=== PATIENT | female | born 1965 | race Caucasian/White ===

== ENCOUNTER → 2018-08-04 07:33 | Outpatient (CLI) | payer BC, SELFPAY ==
--- NOTE | 2018-08-04 07:41 | NM_ITS ---
History and Indications: Coronary artery bypass surgery shortness of breath, tobacco use and family history Procedure: Patient received a 0.4 mg of intravenous Lexiscan, resting heart rate was 72 bpm resting blood pressure 164/104, with Lexiscan maximum heart rate achieved was 108 beats per minute, and the blood pressure was 140/86. With Lexiscan patient, shortness of breath and malaise and headache Electrocardiogram: Resting electrocardiogram showed sinus rhythm, with Lexiscan there is less than 1.[address] segment depression noted from the baseline EKG. The EKG portion of the Lexiscan Myoview is nondiagnostic. Cardiac stress and resting SPECT images: Cardiac stress and resting SPECT images were obtained using technetium 99 Myoview 32.4 mCi at stress and 10.8 mCi at rest. Gated SPECT further analysis of segmental wall motion and calculation of the ejection fraction also done. Cardiac stress and resting SPECT images show uniform myocardial activity without segmental perfusion abnormality, computer derived ejection fraction is 48% with no regional wall motion abnormality, right ventricle is normal size and contractility. Conclusion: 1. The EKG portion of the Lexiscan Myoview is nondiagnostic. 2. No scintigraphic evidence of reversible ischemia seen, computer derived ejection fraction is 48% with no regional wall motion abnormality, right ventricle is normal size and contractility. 3. Normal Lexiscan Myoview study.
--- NOTE | 2018-08-04 10:55 | HMH.ITSHM ---
Current Home Medications as stated by this patient Vanna Gaitan or retail account representative. []PROTONIX CARAFATE ZOFRAN
== END ==
PROVIDERS: PCP Family Medicine; Visit Provider Internal Medicine
DX: Z01.810 Encounter for preprocedural cardiovascular examination (principal); R06.00 Dyspnea, unspecified
CPT/HCPCS: 78452; 93017; 93306; A9502; J2785

== ENCOUNTER → 2019-12-29 13:26 | Outpatient (CLI) | payer BC, SELFPAY ==
[2019-12-29 13:47] LABS: Basophils % 0.3 % (0.1-2.0); Eosinophils # 0.2 K/mm3 (0.0-0.4); Eosinophils % 2.3 % (0.1-12.0); Hematocrit 32.9 % (37.0-47.0); Hemoglobin 9.6 g/dL (12.2-16.2); Lymphocytes # 1.9 K/mm3 (0.7-4.5); Lymphocytes % 26.4 % (10-50); Mean Corpuscular HGB Conc 29.3 g/dL (31.8-35.4); Mean Corpuscular Hemoglobin 20.7 pg (27.0-31.2); Mean Corpuscular Volume 70.7 fl (81-99); Mean Platelet Volume 7.8 fl (7.4-10.4); Monocytes # 0.4 K/mm3 (0.1-1.0); Monocytes % 5.9 % (1.7-9.3); Neutrophils # 4.6 K/mm3 (1.8-7.8); Neutrophils % 65.1 % (37.0-80.0); Platelet Count 317 K/mm3 (142-424); Red Blood Count 4.64 M/mm3 (4.20-5.40); Red Cell Distribution Width 16.7 % (11.5-17.5)
[2019-12-29 14:18] LABS: Alanine Aminotransferase 11 U/L (12-78); Albumin/Globulin Ratio 1.7 (1.1-1.8); Alkaline Phosphatase 100 U/L (38-126); Anion Gap 12.1 mEq/L (5-15); Aspartate Amino Transferase 21 U/L (14-36); Bilirubin,Total 0.4 mg/dl (0.2-1.3); Blood Urea Nitrogen 17 mg/dl (7-17); Carbon Dioxide 29 mmol/L (22.0-30.0); Chloride 103 mmol/L (98-107); Chol/HDL Ratio 2.3 (1-3.5); Cholesterol 166 mg/dl (140-200); Estimated Glomerular Filt Rate 88 ml/min (>60); GFR (African American) 106 ML/MIN (>60); Globulin 2.3 g/dL (1.3-3.2); Glucose 80 mg/dl (74-100); HDL Cholesterol 71 mg/dl (40-60); Potassium 5.1 mmoL/L (3.5-5.1); Sodium 139 mmol/L (136-145); Total Protein,Serum 6.3 g/dl (6.3-8.2); Triglycerides 94 mg/dl (30-150); VLDL Cholesterol 19 mg/dL (0-40)
[2019-12-29 14:30] LABS: Direct LDL Cholesterol 82.09 mg/dL (100-129)
[2019-12-29 14:44] LABS: Free T4 (Free Thyroxine) 1.13 ng/dl (0.78-2.19)
[2019-12-29 14:52] LABS: Thyroid Stimulating Hormone 0.97 uIU/mL (0.465-4.68)
== END ==
PROVIDERS: Visit Provider Family Medicine
DX: R53.83 Other fatigue (principal); Z79.899 Other long term (current) drug therapy; E53.8 Deficiency of other specified B group vitamins
CPT/HCPCS: 80053; 80061; 84439; 84443; 85025

== ENCOUNTER → 2020-05-25 16:28 | Outpatient (CLI) | payer BC, SELFPAY ==
[2020-05-25 16:54] LABS: Iron 22 ug/dL (37-170)
[2020-05-25 16:56] LABS: Basophils % 0.6 % (0.1-2.0); Eosinophils # 0.2 K/mm3 (0.0-0.4); Eosinophils % 2.3 % (0.1-12.0); Hematocrit 40.3 % (37.0-47.0); Hemoglobin 12.1 g/dL (12.2-16.2); Lymphocytes # 1.6 K/mm3 (0.7-4.5); Lymphocytes % 22.6 % (10-50); Mean Corpuscular Hemoglobin 23.3 pg (27.0-31.2); Mean Corpuscular Volume 77.6 fl (81-99); Mean Platelet Volume 9.7 fl (7.4-10.4); Monocytes # 0.4 K/mm3 (0.1-1.0); Monocytes % 5.7 % (1.7-9.3); Neutrophils # 4.9 K/mm3 (1.8-7.8); Neutrophils % 68.7 % (37.0-80.0); Platelet Count 311 K/mm3 (142-424); Red Blood Count 5.19 M/mm3 (4.20-5.40); Red Cell Distribution Width 16.2 % (11.5-17.5); White Blood Count 7.1 K/mm3 (4.8-10.8)
== END ==
PROVIDERS: Visit Provider Family Medicine
DX: D50.8 Other iron deficiency anemias (principal); E66.01 Morbid (severe) obesity due to excess calories; G89.4 Chronic pain syndrome
CPT/HCPCS: 83540; 85025

== ENCOUNTER 2024-04-06 13:59 | Emergency (ER) | payer BC, SELFPAY ==
--- NOTE | 2024-04-06 13:59 | ECG_ITS ---
APPROVED REPORT Exam: Resting ECG HR:75 bpm ECG Measurements Heart Rate 75 AXES QRSd 118 QRS 50 QT 379 T 92 QTc 407 Conclusion SUPRAVENTRICULAR RHYTHM, appears to be sinus however artifact complicates this interpretation INCOMPLETE RIGHT BUNDLE BRANCH BLOCK [90+ ms QRS DURATION, TERMINAL R IN V1/V2, 40+ ms S IN I/aVL/V4/V5/V6] ABNORMAL RHYTHM ECG No STEMI Electronically signed by : ZAK VIVAS, 04/07/2024 07:14:24
[2024-04-06 14:00] VITALS: BP 131/90; PULSE 79; RESP 16; TEMP 36.7; O2SAT 97; BMI 33.5
--- NOTE | 2024-04-06 14:02 | CT_ITS ---
PROCEDURE INFORMATION: Exam: CTA Chest With Contrast Exam date and time: 04/06/2024 2:36 PM Age: 58 years old Clinical indication: Pain; On breathing; Additional info: Dyspnea, RT sided chest pain TECHNIQUE: Imaging protocol: Computed tomographic angiography of the chest with contrast. Exam focused on the arteries. 3D rendering (Not supervised by radiologist): MIP and/or 3D reconstructed images were created by the technologist. Radiation optimization: All CT scans at this facility use at least one of these dose optimization techniques: automated exposure control; mA and/or kV adjustment per patient size (includes targeted exams where dose is matched to clinical indication); or iterative reconstruction. Contrast material: ISOVUE 370; Contrast volume: 70 ml; Contrast route: INTRAVENOUS (IV); COMPARISON: No relevant prior studies available. FINDINGS: Pulmonary arteries: No PE. No evidence of cardiac strain. Aorta: Unremarkable. No aortic aneurysm. No aortic dissection. Lungs: Apical predominant mild-moderate paraseptal and centrilobular emphysema. Background mild diffuse ground-glass opacification of the lungs, with superimposed mild scattered interlobular septal thickening. Scattered subsegmental atelectasis bilaterally, most prominently anterior right lung (image 32 series 1001). Pleural spaces: Unremarkable. No pneumothorax. No pleural effusion. Heart: Cardiomegaly. No pericardial fluid. No significant coronary vessel atherosclerosis. Prosthetic mitral valve is noted. Lymph nodes: Unremarkable. No enlarged lymph nodes. Liver: Partially seen hepatomegaly. Pancreas: Mild fatty atrophy of the pancreas. Kidneys: Nonobstructive bilateral nephrolithiasis. Stomach: Postsurgical change of gastric bypass. Status post cholecystectomy. Bones/joints: Mild levocurvature of the thoracic spine. Prior median sternotomy. Soft tissues: Mild anasarca. Nonspecific string of metallic clips in the right upper ventral abdominal wall. IMPRESSION: 1. No PE. No evidence of cardiac strain. 2. Mild pulmonary edema/CHF. 3. Superimposed infection/inflammation not excluded. 4. Partially seen hepatomegaly. According to clinical discretion, dedicated CT abdomen and pelvis can be considered for complete evaluation. COMMENTS: The presence of pulmonary emphysema on CT is an independent risk factor for lung cancer. In the absence of a history or active diagnosis of lung cancer, it is recommended that this patient with emphysema be evaluated for enrollment in a low dose CT lung cancer screening program.
--- NOTE | 2024-04-06 14:02 | [facility].EDCP ---
Discharge Plan Disposition Patient Disposition: Home, Self-Care Condition: Good Prescriptions Prescriptions: New furosemide [Lasix] 40 mg tablet 40 mg PO DAILY Qty: 30 0RF No Action cyanocobalamin (vitamin B-12) 1,000 mcg/mL solution 100 mcg SQ QMONTH nitroglycerin 0.4 mg tablet, sublingual 0.4 mg SUBLINGUAL Q5-15M PRN (Reason: chest pain) Qty: 10 3RF pantoprazole 40 mg tablet,delayed release (DR/EC) 40 mg PO DAILY Qty: 90 3RF albuterol sulfate 90 mcg/actuation aerosol powdr breath activated 2 inh INHALATION Q4-6H PRN (Reason: shortness of breath) Qty: 1 10RF sucralfate [Carafate] 1 gram tablet 1 g PO DAILY doxepin 10 mg capsule 10 mg PO HS PRN (Reason: sleep) Qty: 90 3RF oxycodone-acetaminophen [Percocet] 5-325 mg tablet 1 tab PO TID PRN (Reason: pain) Qty: 90 0RF ferrous sulfate 325 mg (65 mg iron) tablet 325 mg PO DAILY Qty: 30 5RF alprazolam [Xanax] 2 mg tablet 1 mg PO QHS Qty: 15 1RF Referrals Follow up/Referrals: Provider,Referral, MD [Primary Care Provider] - See instructions Activity Restrictions/Add. Instructions Additional Instructions/Restrictions: I have sent a prescription of Lasix into your pharmacy. Please follow-up within 48 hours with your laminating machine offbearer for further evaluation and care of heart failure including echocardiogram. Follow-up with your PCP for recheck of your INR also within 48 hours. Return to ER for any worsening signs or symptoms as needed Clinical Impressions Clinical Impression: Acute chest wall pain, Subtherapeutic international normalized ratio (INR) Chronic CHF (congestive heart failure) Qualifiers: Heart failure type: unspecified Qualified Code(s): I50.9 - Heart failure, unspecified Instructions Patient Instructions: DI for Heart Failure Print Language Print Language: Persian Discharge ED Provider: Reggie Bonner HPI <KAMILAH Longoria - Last Filed: 04/06/24 15:40> General Chief Complaint: Chest Pain Stated Complaint: chest pain/fall Time Seen by Provider: 04/06/24 14:01 History of Present Illness HPI narrative: Patient presents for evaluation of right sided l chest wall pain. Patient has had chest pain for 4 days. She states that she fell 4 days ago injuring her right knee and her chest pain began shortly after. Patient is on Coumadin for mechanical heart valve, she also has a significant past medical history of Farrah-en-Y gastric bypass, iron deficiency anemia, morbid obesity, COPD on nighttime oxygen daily and occasional daytime oxygen when needed, history of CVA with no residual deficits, GERD and chronic pain. She reports chest pain when she takes a deep breath but is not having to usie her daytime oxygen. She denies fever chills hemoptysis hematochezia melena hematemesis hematuria nausea vomiting or diarrhea Related Data Home Medications ?Medication ?Instructions ?Recorded ?Confirmed sucralfate 1 gram tablet (Carafate) 1 g PO DAILY 07/28/18 05/25/20 cyanocobalamin (vitamin B-12) 100 mcg SQ QMONTH 12/29/19 05/25/20 1,000 mcg/mL injection solution Previous Rx's ?Medication ?Instructions ?Recorded nitroglycerin 0.4 mg sublingual 0.4 mg sublingual Q5-15M PRN chest 12/29/19 tablet pain #10 tabs pantoprazole 40 mg tablet,delayed 40 mg PO DAILY #90 tabs 02/23/20 release albuterol sulfate 90 mcg/actuation 2 inh inhalation Q4-6H PRN 03/27/20 breath activated powder inhaler shortness of breath #1 ea doxepin 10 mg capsule 10 mg PO HS PRN sleep #90 caps 04/26/20 alprazolam 2 mg tablet (Xanax) 1 mg (1/2 x 2 mg) PO QHS #15 tabs 05/25/20 ferrous sulfate 325 mg (65 mg 325 mg PO DAILY #30 tabs 05/25/20 iron) tablet oxycodone-acetaminophen 5 mg-325 1 tab PO TID PRN pain #90 tabs 05/25/20 mg tablet (Percocet) furosemide 40 mg tablet (Lasix) 40 mg PO DAILY #30 tabs 04/06/24 Allergies Allergy/AdvReac Type Severity Reaction Status Date / Time bromfenac [From Duract] Allergy Mild Verified 05/25/20 09:05 cephalexin [From Keflex] Allergy Mild Verified 05/25/20 09:05 PFS <KAMILAH Longoria - Last Filed: 04/06/24 15:40> [facility] Disclaimer: The information contained in this section may have been updated after the patient was seen, as this information can be updated by other users. Social History Smoking Status: Current every day smoker alcohol intake: former substance use type: denies use and former substance user current occupational status: employed Travel in the last 8 weeks: None household members: family and children housing: house Other Medical History Have you received the Pneumonia Vaccine: Yes <KAMLIAH Longoria - Last Filed: 04/06/24 15:40> ROS Obtained: Yes Systems reviewed as appropriate & no additional complaints except as documented Physical Exam <KAMILAH Longoria - Last Filed: 04/06/24 15:40> General General appearance: alert and in no apparent distress Respiratory Respiratory exam: Present normal lung sounds bilaterally Cardiovascular Cardiovascular exam: Present regular rate Neurological Exam Neurological exam: Present alert, oriented X3 and CN II-XII intact HEART Score <KAMILAH Longoria - Last Filed: 04/06/24 15:40> HEART Score HEART Score assessment performed?: Yes History (anamnesis): Moderately suspicious ECG: Non-specific disturbance Age: 45-65 years Risk factors: Atherosclerosis history Troponin: </= normal limit HEART Score: 5 <Reggie Bonner MD - Last Filed: 04/06/24 20:38> HEART Score HEART Score: 5 Critical Care <KAMILAH Longoria - Last Filed: 04/06/24 15:40> Critical Care Time Critical Care Time: No Medical Decision Making <KAMILAH Longoria - Last Filed: 04/06/24 15:40> Medical Records Medical records reviewed: Yes I reviewed the patient's medical records. Rafi Inquiry Pt receiving controlled substance: No Vital Signs Vital Signs: 04/06/24 14:00 04/06/24 15:00 04/06/24 15:53 Temperature 98.0 F 98.2 F Temperature Source Oral Pulse Rate 67 65 Pulse Rate [Radial] 79 Respiratory Rate 16 20 Blood Pressure 121/68 138/93 H Blood Pressure [Right Arm] 131/90 Blood Pressure Mean [Right Arm] 103 Blood Pressure Source [Right Arm] Automatic Cuff Blood Pressure Position [Right Arm] Sitting 02 Sat by Pulse Oximetry 97 96 Oxygen Delivery Method Room Air Room Air Lab Data Lab results reviewed: Yes I reviewed the patient's lab results. Labs: Lab Results 04/06/24 14:00: WBC 13.7 H, RBC 4.63, Hgb 12.2, Hct 38.9, MCV 84.1, MCH 26.4 L, MCHC 31.4 L, RDW 16.5, Plt Count 268, MPV 7.7, Neut % (Auto) 80.4 H, Lymph % (Auto) 11.1, [place] % (Auto) 6.8, Eos % (Auto) 1.3, Baso % (Auto) 0.4, Neut # (Auto) 11.0 H, Lymph # (Auto) 1.5, [place] # (Auto) 0.9, Eos # (Auto) 0.2, Baso # (Auto) 0.1, PT 12.5, INR 1.13 H, Sodium 140, Potassium 4.0, Chloride 104, Carbon Dioxide 33 H, Anion Gap 7.0, BUN 32 H, Creatinine 0.80, Estimated Creat Clear 105, Estimated GFR 74, Est GFR ( Amer) 89, Glucose 101 H, Calcium 8.2 L, Magnesium 2.0, Total Bilirubin 0.6, AST 23, ALT 22, Alkaline Phosphatase 76, Troponin I < 0.01, NT-Pro-B Natriuret Pep 918 H, Total Protein 6.4, Albumin 3.8, Globulin 2.6, Albumin/Globulin Ratio 1.5, Procalcitonin 0.039, HIV 1&2 Antibody Rapid Nonreactive 04/06/24 14:03: VBG pH 7.39, VBG pCO2 54.0 H, VBG pO2 43.5 H, VBG HCO3 31.9 H, VBG Total CO2 33.5 H, VBG O2 Saturation 82.7 H, VBG Base Excess 6.9 H, VBG Lactic Acid 2.2 H, SARS-CoV-2 (PCR) Not detected, Influenza A Untype (PCR) Not detected, Influenza Type B (PCR) Not detected 04/06/24 14:00 04/06/24 14:00 Response Orders (Tests/Meds): ED MEDICATIONS Discontinued Medications Generic Name Dose Route Start Last Admin Trade Name Freq PRN Reason Stop Dose Admin Acetaminophen 1,000 mg 04/06/24 14:02 04/06/24 14:45 Acetaminophen 500mg Tab PO 04/06/24 14:03 1,000 mg ONCE ONE Administration Furosemide 80 mg 04/06/24 15:30 04/06/24 15:22 Furosemide 100mg/10ml Vial IV 04/06/24 15:31 80 mg ONCE ONE Administration Iopamidol 70 ml 04/06/24 14:34 04/06/24 14:35 Iopamidol-370 (76%);100ml Bottle IV 04/06/24 14:35 70 ml ONCE ONE Administration Sodium Chloride 50 ml 04/06/24 14:34 04/06/24 14:35 0.9 % Sodium Chloride 50 Ml Vial IV 04/06/24 14:35 50 ml ONCE ONE Administration Sodium Chloride 10 ml 04/06/24 14:34 04/06/24 14:35 Sodium Chloride 0.9% 10ml Syr (Rad Only) IV 04/06/24 14:35 10 ml ONCE ONE Administration ORDERS Category Date Time Status CT angio chest PE protocol Stat Cat Scan 04/06/24 14:02 Completed Knee XR right 4 views [XR knee RT 4V] Stat Exams 04/06/24 14:38 Completed BNP [NT Pro Brain Natriuretic Pep.] Stat Lab 04/06/24 14:00 Completed CBC w/Auto Diff [Complete Blood Count Auto Diff] Stat Lab 04/06/24 14:00 Completed CMP [Comprehensive Metabolic Panel] Stat Lab 04/06/24 14:00 Completed HIV (1&2) Antibody Rapid Stat Lab 04/06/24 14:00 Completed Hep C Ab with Reflex to RNA Stat Lab 04/06/24 14:00 Received INR [Prothrombin Time INR] Stat Lab 04/06/24 14:00 Completed Magnesium Stat Lab 04/06/24 14:00 Completed Procalcitonin Stat Lab 04/06/24 14:00 Completed Rapid PCR Covid and Flu A/B Stat Lab 04/06/24 14:03 Completed Trop I [Troponin I] Stat Lab 04/06/24 14:00 Completed VBG [Venous Blood Gas] Stat RT 04/06/24 14:03 Completed CA venous doppler LE RT Stat Y 04/06/24 15:01 Completed MDM Narrative Medical Decision Narrative: In summary patient is a 58-year-old female who presents to the emergency department for evaluation of chest pain. Patient is hemodynamically stable satting at 97% on room air upon arrival, afebrile. Physical exam is remarkable for respiratory rate of about 16 but increase work of breathing, nonreproducible chest pain on palpation, diminished breath sounds at the bases with coarse rhonchi, nontender abdominal exam, no tenderness of the dorsal spine C-spine or head, significant ecchymosis of the right lower extremity around the knee with a small abrasion over the patella and tenderness to palpation in the same area but no palpable bony deformity. Ecchymosis extends down to the toes. Differential diagnosis includes PE pneumonia COPD ACS CHF coagulopathy occult fracture etc. Initial workup will be conducted with hematologic labs CT scan of the chest PE protocol and plain film x-rays of the right lower extremity. Initial interventions include acetaminophen DuoNeb Decadron. Initial workup reviewed by me shows that she has a white count of 13.7 with a neutrophil count of 11.1 however patient has been on steroids and antibiotics last week for reported infection, her INR is subtherapeutic at 1.13, VBG shows a preserved pH with a pCO2 of 54, NT proBNP is elevated at 884 and patient reports compliance with her Lasix. Ultrasound of the right lower extremity shows no evidence of deep or superficial thrombus. Upon repeat evaluation patient reports improvement in her symptoms after initial intervention. Given this had interactive discussion with the patient about her findings in her case and via patient directed decision making and discharge patient is comfortable going home with follow-up with her laminating machine offbearer tomorrow. <Catarina Pitts, DO - Last Filed: 04/06/24 15:24> Vital Signs Vital Signs: 04/06/24 14:00 04/06/24 15:00 04/06/24 15:53 Temperature 98.0 F 98.2 F Temperature Source Oral Pulse Rate 67 65 Pulse Rate [Radial] 79 Respiratory Rate 16 20 Blood Pressure 121/68 138/93 H Blood Pressure [Right Arm] 131/90 Blood Pressure Mean [Right Arm] 103 Blood Pressure Source [Right Arm] Automatic Cuff Blood Pressure Position [Right Arm] Sitting 02 Sat by Pulse Oximetry 97 96 Oxygen Delivery Method Room Air Room Air Lab Data Labs: Lab Results 04/06/24 14:00: WBC 13.7 H, RBC 4.63, Hgb 12.2, Hct 38.9, MCV 84.1, MCH 26.4 L, MCHC 31.4 L, RDW 16.5, Plt Count 268, MPV 7.7, Neut % (Auto) 80.4 H, Lymph % (Auto) 11.1, [place] % (Auto) 6.8, Eos % (Auto) 1.3, Baso % (Auto) 0.4, Neut # (Auto) 11.0 H, Lymph # (Auto) 1.5, [place] # (Auto) 0.9, Eos # (Auto) 0.2, Baso # (Auto) 0.1, PT 12.5, INR 1.13 H, Sodium 140, Potassium 4.0, Chloride 104, Carbon Dioxide 33 H, Anion Gap 7.0, BUN 32 H, Creatinine 0.80, Estimated Creat Clear 105, Estimated GFR 74, Est GFR ( Amer) 89, Glucose 101 H, Calcium 8.2 L, Magnesium 2.0, Total Bilirubin 0.6, AST 23, ALT 22, Alkaline Phosphatase 76, Troponin I < 0.01, NT-Pro-B Natriuret Pep 918 H, Total Protein 6.4, Albumin 3.8, Globulin 2.6, Albumin/Globulin Ratio 1.5, Procalcitonin 0.039, HIV 1&2 Antibody Rapid Nonreactive 04/06/24 14:03: VBG pH 7.39, VBG pCO2 54.0 H, VBG pO2 43.5 H, VBG HCO3 31.9 H, VBG Total CO2 33.5 H, VBG O2 Saturation 82.7 H, VBG Base Excess 6.9 H, VBG Lactic Acid 2.2 H, SARS-CoV-2 (PCR) Not detected, Influenza A Untype (PCR) Not detected, Influenza Type B (PCR) Not detected Response Orders (Tests/Meds): ED MEDICATIONS Discontinued Medications Generic Name Dose Route Start Last Admin Trade Name Freq PRN Reason Stop Dose Admin Acetaminophen 1,000 mg 04/06/24 14:02 04/06/24 14:45 Acetaminophen 500mg Tab PO 04/06/24 14:03 1,000 mg ONCE ONE Administration Furosemide 80 mg 04/06/24 15:30 04/06/24 15:22 Furosemide 100mg/10ml Vial IV 04/06/24 15:31 80 mg ONCE ONE Administration Iopamidol 70 ml 04/06/24 14:34 04/06/24 14:35 Iopamidol-370 (76%);100ml Bottle IV 04/06/24 14:35 70 ml ONCE ONE Administration Sodium Chloride 50 ml 04/06/24 14:34 04/06/24 14:35 0.9 % Sodium Chloride 50 Ml Vial IV 04/06/24 14:35 50 ml ONCE ONE Administration Sodium Chloride 10 ml 04/06/24 14:34 04/06/24 14:35 Sodium Chloride 0.9% 10ml Syr (Rad Only) IV 04/06/24 14:35 10 ml ONCE ONE Administration ORDERS Category Date Time Status CT angio chest PE protocol Stat Cat Scan 04/06/24 14:02 Completed Knee XR right 4 views [XR knee RT 4V] Stat Exams 04/06/24 14:38 Completed BNP [NT Pro Brain Natriuretic Pep.] Stat Lab 04/06/24 14:00 Completed CBC w/Auto Diff [Complete Blood Count Auto Diff] Stat Lab 04/06/24 14:00 Completed CMP [Comprehensive Metabolic Panel] Stat Lab 04/06/24 14:00 Completed HIV (1&2) Antibody Rapid Stat Lab 04/06/24 14:00 Completed Hep C Ab with Reflex to RNA Stat Lab 04/06/24 14:00 Received INR [Prothrombin Time INR] Stat Lab 04/06/24 14:00 Completed Magnesium Stat Lab 04/06/24 14:00 Completed Procalcitonin Stat Lab 04/06/24 14:00 Completed Rapid PCR Covid and Flu A/B Stat Lab 04/06/24 14:03 Completed Trop I [Troponin I] Stat Lab 04/06/24 14:00 Completed VBG [Venous Blood Gas] Stat RT 04/06/24 14:03 Completed CA venous doppler LE RT Stat Y 04/06/24 15:01 Completed ECG Data Tracing #1: Attestation: I reviewed this ECG and interpreted as documented below: ECG Narrative: Normal sinus rhythm with a ventricular rate of 77 bpm. Incomplete right bundle branch block. No acute ST changes concerning for ischemia. Summation artifact degrades study ECG initial impression date: 04/06/24 ECG initial impression time: 14:00 Tracing #2: Attestation: I reviewed this ECG and interpreted as documented below: ECG Narrative: Normal sinus rhythm with a ventricular to 75 bpm. Incomplete right bundle branch block. No acute ST changes concerning for ischemia. Improved with less motion artifact from prior study. ECG initial impression date: 04/06/24 ECG initial impression time: 14:00 <Reggie Bonner MD - Last Filed: 04/06/24 20:38> Vital Signs Vital Signs: 04/06/24 14:00 04/06/24 15:00 04/06/24 15:53 Temperature 98.0 F 98.2 F Temperature Source Oral Pulse Rate 67 65 Pulse Rate [Radial] 79 Respiratory Rate 16 20 Blood Pressure 121/68 138/93 H Blood Pressure [Right Arm] 131/90 Blood Pressure Mean [Right Arm] 103 Blood Pressure Source [Right Arm] Automatic Cuff Blood Pressure Position [Right Arm] Sitting 02 Sat by Pulse Oximetry 97 96 Oxygen Delivery Method Room Air Room Air Lab Data Labs: Lab Results 04/06/24 14:00: WBC 13.7 H, RBC 4.63, Hgb 12.2, Hct 38.9, MCV 84.1, MCH 26.4 L, MCHC 31.4 L, RDW 16.5, Plt Count 268, MPV 7.7, Neut % (Auto) 80.4 H, Lymph % (Auto) 11.1, [place] % (Auto) 6.8, Eos % (Auto) 1.3, Baso % (Auto) 0.4, Neut # (Auto) 11.0 H, Lymph # (Auto) 1.5, [place] # (Auto) 0.9, Eos # (Auto) 0.2, Baso # (Auto) 0.1, PT 12.5, INR 1.13 H, Sodium 140, Potassium 4.0, Chloride 104, Carbon Dioxide 33 H, Anion Gap 7.0, BUN 32 H, Creatinine 0.80, Estimated Creat Clear 105, Estimated GFR 74, Est GFR ( Amer) 89, Glucose 101 H, Calcium 8.2 L, Magnesium 2.0, Total Bilirubin 0.6, AST 23, ALT 22, Alkaline Phosphatase 76, Troponin I < 0.01, NT-Pro-B Natriuret Pep 918 H, Total Protein 6.4, Albumin 3.8, Globulin 2.6, Albumin/Globulin Ratio 1.5, Procalcitonin 0.039, HIV 1&2 Antibody Rapid Nonreactive 04/06/24 14:03: VBG pH 7.39, VBG pCO2 54.0 H, VBG pO2 43.5 H, VBG HCO3 31.9 H, VBG Total CO2 33.5 H, VBG O2 Saturation 82.7 H, VBG Base Excess 6.9 H, VBG Lactic Acid 2.2 H, SARS-CoV-2 (PCR) Not detected, Influenza A Untype (PCR) Not detected, Influenza Type B (PCR) Not detected Response Orders (Tests/Meds): ED MEDICATIONS Discontinued Medications Generic Name Dose Route Start Last Admin Trade Name Jacinda PRN Reason Stop Dose Admin Acetaminophen 1,000 mg 04/06/24 14:02 04/06/24 14:45 Acetaminophen 500mg Tab PO 04/06/24 14:03 1,000 mg ONCE ONE Administration Furosemide 80 mg 04/06/24 15:30 04/06/24 15:22 Furosemide 100mg/10ml Vial IV 04/06/24 15:31 80 mg ONCE ONE Administration Iopamidol 70 ml 04/06/24 14:34 04/06/24 14:35 Iopamidol-370 (76%);100ml Bottle IV 04/06/24 14:35 70 ml ONCE ONE Administration Sodium Chloride 50 ml 04/06/24 14:34 04/06/24 14:35 0.9 % Sodium Chloride 50 Ml Vial IV 04/06/24 14:35 50 ml ONCE ONE Administration Sodium Chloride 10 ml 04/06/24 14:34 04/06/24 14:35 Sodium Chloride 0.9% 10ml Syr (Rad Only) IV 04/06/24 14:35 10 ml ONCE ONE Administration ORDERS Category Date Time Status CT angio chest PE protocol Stat Cat Scan 04/06/24 14:02 Completed Knee XR right 4 views [XR knee RT 4V] Stat Exams 04/06/24 14:38 Completed BNP [NT Pro Brain Natriuretic Pep.] Stat Lab 04/06/24 14:00 Completed CBC w/Auto Diff [Complete Blood Count Auto Diff] Stat Lab 04/06/24 14:00 Completed CMP [Comprehensive Metabolic Panel] Stat Lab 04/06/24 14:00 Completed HIV (1&2) Antibody Rapid Stat Lab 04/06/24 14:00 Completed Hep C Ab with Reflex to RNA Stat Lab 04/06/24 14:00 Received INR [Prothrombin Time INR] Stat Lab 04/06/24 14:00 Completed Magnesium Stat Lab 04/06/24 14:00 Completed Procalcitonin Stat Lab 04/06/24 14:00 Completed Rapid PCR Covid and Flu A/B Stat Lab 04/06/24 14:03 Completed Trop I [Troponin I] Stat Lab 04/06/24 14:00 Completed VBG [Venous Blood Gas] Stat RT 04/06/24 14:03 Completed CA venous doppler LE RT Stat Y 04/06/24 15:01 Completed MDM Narrative Medical Decision Narrative: In summary patient is a 58-year-old female who presents to the emergency department for evaluation of chest pain. Patient is hemodynamically stable satting at 97% on room air upon arrival, afebrile. Physical exam is remarkable for respiratory rate of about 16 but increase work of breathing, nonreproducible chest pain on palpation, diminished breath sounds at the bases with coarse rhonchi, nontender abdominal exam, no tenderness of the dorsal spine C-spine or head, significant ecchymosis of the right lower extremity around the knee with a small abrasion over the patella and tenderness to palpation in the same area but no palpable bony deformity. Ecchymosis extends down to the toes. Differential diagnosis includes PE pneumonia COPD ACS CHF coagulopathy occult fracture etc. Initial workup will be conducted with hematologic labs CT scan of the chest PE protocol and plain film x-rays of the right lower extremity. Initial interventions include acetaminophen DuoNeb Decadron. Initial workup reviewed by me shows that she has a white count of 13.7 with a neutrophil count of 11.1 however patient has been on steroids and antibiotics last week for reported infection, her INR is subtherapeutic at 1.13, VBG shows a preserved pH with a pCO2 of 54, NT proBNP is elevated at 884 and patient reports compliance with her Lasix. Ultrasound of the right lower extremity shows no evidence of deep or superficial thrombus. Upon repeat evaluation patient reports improvement in her symptoms after initial intervention. Given this had interactive discussion with the patient about her findings in her case and via patient directed decision making and discharge patient is comfortable going home with follow-up with her laminating machine offbearer tomorrow. I was consulted by the [place], and we discussed the complexity of the problems being addressed. I approved the treatment and management plan for this patient's care in the Emergency Department, thus performing a substantive portion of the medical decision making. Reggie Bonner MD
[2024-04-06 14:13] LABS: Coronavirus 19, PCR Not Detected (NotDetected); Influenza A, PCR Not Detected (NotDetected); Influenza B, PCR Not Detected (NotDetected)
[2024-04-06 14:15] LABS: VBG Base Excess 6.9 mmol/L (-2.4-2.3); VBG HCO3 31.9 mmol/L (23-30); VBG Oxygen Saturation 82.7 % (50-70); VBG PH 7.39 mmol/L (7.31-7.41); VBG PO2 43.5 mmol/L (28-40); VBG Total CO2 33.5 mmol/L (23-27)
[2024-04-06 14:18] LABS: Lactate Venous 2.2 mmol/L (0.4-2.0)
[2024-04-06 14:19] LABS: Albumin Level 3.8 g/dl (3.5-5.0); Chloride 104 mmol/L (98-107); Sodium 140 mmol/L (136-145)
[2024-04-06 14:22] LABS: Alanine Aminotransferase 22 U/L (12-78); Albumin/Globulin Ratio 1.5 (1.1-1.8); Alkaline Phosphatase 76 U/L (38-126); Aspartate Amino Transferase 23 U/L (14-36); Bilirubin,Total 0.6 mg/dl (0.2-1.3); Blood Urea Nitrogen 32 mg/dl (7-17); Calcium 8.2 mg/dl (8.4-10.2); Carbon Dioxide 33 mmol/L (22.0-30.0); Creatinine Clearance Estimated 105 mL/min (50-200); Estimated Glomerular Filt Rate 74 ml/min (>60); GFR (African American) 89 ML/MIN (>60); Globulin 2.6 g/dL (1.3-3.2); Glucose 101 mg/dl (74-100); Total Protein,Serum 6.4 g/dl (6.3-8.2)
[2024-04-06 14:24] LABS: INR 1.13 (0.9-1.1); Prothrombin Time 12.5 seconds (10.1-12.5)
[2024-04-06 14:27] LABS: Basophils # 0.1 K/mm3 (0-0.2); Basophils % 0.4 % (0.1-2.0); Eosinophils # 0.2 K/mm3 (0.0-0.4); Eosinophils % 1.3 % (0.1-12.0); Hematocrit 38.9 % (37.0-47.0); Hemoglobin 12.2 g/dL (12.2-16.2); Lymphocytes # 1.5 K/mm3 (0.7-4.5); Lymphocytes % 11.1 % (10-50); Mean Corpuscular HGB Conc 31.4 g/dL (31.8-35.4); Mean Corpuscular Hemoglobin 26.4 pg (27.0-31.2); Mean Corpuscular Volume 84.1 fl (81-99); Mean Platelet Volume 7.7 fl (7.4-10.4); Monocytes # 0.9 K/mm3 (0.1-1.0); Monocytes % 6.8 % (1.7-9.3); Neutrophils % 80.4 % (37.0-80.0); Platelet Count 268 K/mm3 (142-424); Red Blood Count 4.63 M/mm3 (4.20-5.40); Red Cell Distribution Width 16.5 % (11.5-17.5); White Blood Count 13.7 K/mm3 (4.8-10.8)
--- NOTE | 2024-04-06 14:30 | PC.NURSE ---
patient gone to CT at this time.
[2024-04-06] MEDS: 0.9 % SODIUM CHLORIDE 50 ML VIAL IV (14:35)
[2024-04-06] MEDS: SODIUM CHLORIDE 0.9% 10ML SYR (RAD ONLY) 10 ML IV (14:35)
[2024-04-06] MEDS: IOPAMIDOL-370 (76%);100ML BOTTLE 70 ML IV (14:35)
--- NOTE | 2024-04-06 14:38 | XR_ITS ---
PROCEDURE INFORMATION: Exam: XR Right Knee Exam date and time: 04/06/2024 3:08 PM Age: 58 years old Clinical indication: Injury or trauma; Fall; Blunt trauma; Knee; Right; Additional info: Fall, hematoma TECHNIQUE: Imaging protocol: Radiologic exam of the right knee. Views: 4 or more views. COMPARISON: No relevant prior studies available. FINDINGS: Bones/joints: No acute fracture or malalignment. Right knee arthroplasty with patellar resurfacing in satisfactory alignment without evidence of hardware complication. Soft tissues: Moderate soft tissue swelling around the knee. No radiopaque foreign body or gas. IMPRESSION: 1. No acute fracture or malalignment. 2. Moderate knee soft tissue swelling.
[2024-04-06] MEDS: ACETAMINOPHEN 500MG TAB 1000 MG PO (14:45)
[2024-04-06 14:57] LABS: Procalcitonin 0.039 ng/mL (0.0-2.0)
[2024-04-06 15:00] VITALS: BP 121/68; PULSE 67; O2SAT 96
[2024-04-06] MEDS: FUROSEMIDE 100MG/10ML VIAL 80 MG IV (15:22)
--- NOTE | 2024-04-06 15:28 | PC.NURSE ---
doppler at bedside and its negative
[2024-04-06 15:40] LABS: NT Pro Brain Natriuretic Pep. 918 pg/mL (0-125); Troponin I < 0.01 ng/ml (0.00-0.034)
[2024-04-06 15:53] VITALS: BP 138/93; PULSE 65; RESP 20; TEMP 36.8; O2SAT 93
[2024-04-06 16:33] LABS: HIV (1&2) Antibody Rapid NONREACTIVE (NONREACTIVE)
[2024-04-06 18:18] LABS: Reflex Lactic Add Lactic Reflex
[2024-04-08 22:08] LABS: HCV Ab Reactive (Non Reactive)
== END 2024-04-06 15:55 | disposition home or self-care (01) ==
PROVIDERS: Physician Assistant; Emergency Provider Emergency Medicine
DX: R79.1 Abnormal coagulation profile (principal); I50.9 Heart failure, unspecified; R07.89 Other chest pain; R07.9 Chest pain, unspecified
CPT/HCPCS: 71275; 73564; 80053; 82803; 83735; 83880; 84145; 84484; 85025; 85610; 86803; 87389; 87636; 93005; 93971; 96374; 99285; J1940; Q9967

== ENCOUNTER 2024-06-21 10:52 | Outpatient (POV) | payer OTHER, SELFPAY ==
[2024-06-21 11:09] VITALS: BP 123/95; PULSE 66; RESP 16; O2SAT 96; BMI 34.5
--- NOTE | 2024-06-21 11:51 | A.OFFVIS_ITS ---
HPI Data of Consult Patient: new to practice Consult date: 06/21/24 Requesting Physician: Catarina Batista APRN Primary Care Provider: Referral Provider, MD Consult Narrative Reason for consult: Low back pain, bilateral leg pain History of present illness: Ms. Gaitan is a 58 year old female who presents today as a new patient. She has a referral from Jason Jang. Today she rates her pain an 8 out of 10. Patient states she has chronic pain throughout her low back that does radiate down into both her legs with the right side more affected than the left. She does also have chronic knee related pain. Patient states this has been going on for at least 15 years if not longer. She states the pain is constant and describes it as an aching, throbbing sensation with some numbness and tingling. She states that she cannot do prolonged walking or standing due to the pain and it frequently causes her legs to give out. Patient states it was not that long ago that she had this happen causing her to fall and had significant injury on her knee with abrasions and bruising. Patient states that she cannot lift or do any type of activity such as cooking or cleaning due to the worsening pain. She states she frequently has to stop and take multiple breaks due to the pain. She has tried oral medications along with heat and ice and topicals with minimal relief. Patient states she has had multiple injections in the past including epidurals, lumbar ablations that never seem to work. She states the ablation she will never do again because it caused such significant pain. Patient also states that her epidural at 1 point she had in the past caused her where she could not even walk for about 3 days. Patient is not interested in any injection therapy. Patient does have significant heart history and does have a mechanical valve in place. Patient states that she had physical therapy but it made her pain worse. She does states she tries to stay active but is very limited due to the pain. Patient also states that her insurance recently changed and she is not really sure what is covered and what is not. Patient also has a history of gastric bypass and cannot do any NSAIDs due to this. Patient is prescribed gabapentin and Ambien from an outside provider. Patient does state that she has had back surgery in the past however she is not exactly sure of the timeframe or what procedure they did do. Her Rafi has been reviewed and is appropriate. CC: Catarina Batista APRN [facility] Disclaimer: The information contained in this section may have been updated after the deepakedward nt was seen, as this information can be updated by other users. Medical History (Updated 06/21/24 @ 11:58 by Catarina Batista APRN) Anemia Anxiety COPD (chronic obstructive pulmonary disease) Hypertension Heart disease Chest pain Surgical History (Updated 06/21/24 @ 11:16 by Hilary Nayak, RN) History of total right knee replacement History of open heart surgery History of back surgery Social History Smoking Status: Current every day smoker alcohol intake: former substance use type: denies use and former substance user current occupational status: other Travel in the last 8 weeks: None household members: family and children housing: house Review of Systems Review of Systems Review of systems:: pertinent systems reviewed and negative unless documented below Review of systems (narrative): Review of Systems: General: No recent weight changes, no fever, no sleep disturbances Respiratory: No cough, no shortness of air, no recurring pulmonary infections Cardiovascular/peripheral vascular: No chest pain, no palpitations, no edema, n o shortness of breath Gastrointestinal: No new onset incontinence, normal bowel movements reported Genitourinary: No new onset incontinence Musculoskeletal: Low back pain, bilateral leg pain, knee pain Psychiatric: [Normal mood/affect] Neurological: [Denies weakness in extremities], [denies balance issues] Meds Home Medications and Allergies Home Medications ?Medication ?Instructions ?Recorded ?Confirmed ?Type sucralfate 1 gram tablet (Carafate) 1 g PO DAILY 07/28/18 06/21/24 History cyanocobalamin (vitamin B-12) 100 mcg SQ QMONTH 12/29/19 06/21/24 History 1,000 mcg/mL injection solution nitroglycerin 0.4 mg sublingual 0.4 mg sublingual Q5-15M PRN chest 12/29/19 06/21/24 Rx tablet pain #10 tabs pantoprazole 40 mg tablet,delayed 40 mg PO DAILY #90 tabs 02/23/20 06/21/24 Rx release albuterol sulfate 90 mcg/actuation 2 inh inhalation Q4-6H PRN 03/27/20 06/21/24 Rx breath activated powder inhaler shortness of breath #1 ea doxepin 10 mg capsule 10 mg PO HS PRN sleep #90 caps 04/26/20 06/21/24 Rx alprazolam 2 mg tablet (Xanax) 1 mg (1/2 x 2 mg) PO QHS #15 tabs 05/25/20 06/21/24 Rx ferrous sulfate 325 mg (65 mg 325 mg PO DAILY #30 tabs 05/25/20 06/21/24 Rx iron) tablet oxycodone-acetaminophen 5 mg-325 1 tab PO TID PRN pain #90 tabs 05/25/20 06/21/24 Rx mg tablet (Percocet) furosemide 40 mg tablet (Lasix) 40 mg PO DAILY #30 tabs 04/06/24 06/21/24 Rx New Prescriptions to Start Prescriptions: Allergies Allergy/AdvReac Type Severity Reaction Status Date / Time bromfenac (From Duract) Allergy Mild Verified 05/25/20 09:05 cephalexin (From Keflex) Allergy Mild Verified 05/25/20 09:05 Objective Vital signs: Pulse Resp BP Pulse Ox O2 Del Method 66 16 123/95 H 96 Room Air 06/21/24 11:09 06/21/24 11:09 06/21/24 11:09 06/21/24 11:09 06/21/24 11:09 Narrative: Physical Exam: General: Alert and oriented x3, no acute distress, pleasant and cooperative Lungs: Respirations even and unlabored, symmetrical chest expansion Eyes: PERRL Musculoskeletal: Flexion and extension of lumbar [spine] somewhat guarded secondary to pain, [antalgic gait noted] point tenderness along the lower lumbar spine and SI joints bilaterally Neurological: Speech clear, no gross sensory deficit Additional findings Additional findings: Orthocincy January 05, 2021 MRI lumbar spine without Findings: There is no fracture deformity or acute malalignment. Modic type I degenerative endplate changes L3-L4 as well as to the greater extent L4-L5. Degenerative edema versus stress type I marrow changes extend into the right greater than left L4 pedicles. Conus terminates at L1. Distal cord is normal. Imaged paravertebral soft tissues are normal. L1-L2: Shallow disc bulge with moderate facet disease. Mild central canal stenosis without foraminal narrowing L2-L3: Shallow disc bulge with moderate bilateral facet disease contributes to mild central canal stenosis without significant foraminal stenosis L3-L4: Broad-based disc bulge, severe bilateral facet and ligamentous hype rtrophy resulting in moderate canal stenosis, left and right lateral recess effacement, moderate right and left foraminal narrowing. Similar to prior study. L4-L5: Moderate disc height space loss, broad-based disc osteophyte complex with severe bilateral facet disease, severe canal stenosis, severe right and left foraminal narrowing. Central canal stenosis is progressive from prior study. L5-S1: Bony fusion across the disc space. Endplate hypertrophy and mild facet disease. There is minimal thecal sac effacement, mild bilateral foraminal stenosis Assessment and Plan *Assessment and plan (1) Lumbar disc disease: Status: Acute Category: Medical Code(s): M51.9 - Unspecified thoracic, thoracolumbar and lumbosacral intervertebral disc disorder (2) Chronic back pain: Status: Acute Category: Medical Code(s): M54.9 - Dorsalgia, unspecified; G89.29 - Other chronic pain (3) Degenerative disc disease, lumbar: Status: Acute Category: Medical Code(s): M51.369 - Other intervertebral disc degeneration, lumbar region without mention of lumbar back pain or lower extremity pain (4) Lumbar radiculopathy: Status: Acute Category: Medical Code(s): M54.16 - Radiculopathy, lumbar region (5) Spinal stenosis of lumbar region with neurogenic claudication: Status: Acute Category: Medical Code(s): M48.062 - Spinal stenosis, lumbar region with neurogenic claudication Plan Patient is experiencing significant pain throughout her low back with very limited range of motion. I did discuss with the patient due to her extensive history of surgical intervention and chronic pain that she may be a potential candidate of a intrathecal pain pump trial as well as possible minimally invasive lumbar decompression. Patient was reviewed over the risk and benefits of both of these devices and she would like time to research as well as to look into her insurance and what is officially covered and what is not. Patient was also discussed with her regarding ordering the compounded cream and taking out the anti-inflammatory medication however at this time she would like to wait. We will follow-up with the patient in 1 month for reevaluation of symptoms and plan of care. Patient has been instructed to contact the clinic with any concerns before the next appointment. Dr. Bux has reviewed this note and agrees with this plan of care. This note was dictated using voice recognition software and make contain errors or omissions. All injections are used with Lidocaine, Bupivacaine and Depo Medrol. Occasionally urine drug screen is needed to verify patient's compliance with our office pain contract. This is ordered based off specific treatments related to chronic pain with the potential to abuse certain medications.
== END 2024-06-21 23:59 | disposition home or self-care (01) ==
LOC: SC.PAIN 10:55
PROVIDERS: Visit Provider Nurse Practitioner Family
DX: M54.9 Dorsalgia, unspecified (principal); G89.29 Other chronic pain; M51.16 Intervertebral disc disorders with radiculopathy, lumbar region; M48.062 Spinal stenosis, lumbar region with neurogenic claudication; Z73.89 Other problems related to life management difficulty; Z96.651 Presence of right artificial knee joint; F17.210 Nicotine dependence, cigarettes, uncomplicated
CPT/HCPCS: 99202; G0463